=== PATIENT | female | born 1960 | race American Indian/Alaskan Native ===

== ENCOUNTER 2018-07-20 06:18 | Day surgery (SDC) | payer OTHER ==
[2018-07-20] MEDS ORDERED: WATER FOR IRRIG STERILE IR ONE (07:20)
[2018-07-20] MEDS ORDERED: WATER FOR IRRIG STERILE ONE (07:20)
[2018-07-20] MEDS ORDERED: DIPRIVAN 10 MG/ML IV ONE ×2 (07:50→08:21)
[2018-07-20] MEDS ORDERED: XYLOCAINE 2% INFILTRATI ONE (07:50)
[2018-07-20] MEDS ORDERED: NACL 0.9% 1000 ML 1,000 ML IV SCH (08:00)
--- NOTE | 2018-07-20 08:20 | Anesthesia Day of Surgery ---
Anesthesia Day of Surgery - Day of Surgery Patient Examined: Yes Patient H&P Reviewed: Yes Patient is NPO: Yes Beta Blockers: No
--- NOTE | 2018-07-20 08:21 | Anesthesia Consultation ---
Anesthesia Consult and Med Hx Date of service: 07/20/18 - Airway Anesthetic Teeth Evaluation: Good ROM Head & Neck: Adequate Mental/Hyoid Distance: Adequate Mallampati Class: Class III Intubation Access Assessment: Good - Pulmonary Exam CTA: Yes - Cardiac Exam Cardiac Exam: No Murmur - Pre-Operative Health Status ASA Pre-Surgery Classification: ASA3 Proposed Anesthetic Plan: MAC - Pulmonary Hx Smoking: Yes - Cardiovascular System Hx Hypertension: Yes
[2018-07-20] MEDS ORDERED: VERSED ONE (08:40)
--- NOTE | 2018-07-20 09:16 | Procedure Note ---
Date of procedure: 07/20/18 Pre-op diagnosis: Changes in bowel Habit/ colon Polyp Screening Post-op diagnosis: other (Colon Polyps (Sigmoid and Rectal)/ Scattered, Left Colon Diverticular Disease/Minor, Internal Hemorrhoid/ No endoscopic evidence of Colitis) Procedure: Colonoscopy with Snare Excision and cold Biopsy Anesthesia: MAC Surgeon: SHAYY SHAVER Estimated blood loss: minimal Pathology: list Specimen disposition: to lab Condition: stable Disposition: same day (Encourage fiber intake/ Avoid aspirin and NSAID for 5 days. Follow up in 1 to 2 weeks ([phone]).)
[2018-07-20 09:45] VITALS: BP 106/64
--- NOTE | 2018-07-20 09:50 | Operative Report ---
INDICATIONS: This is a 58-year-old white female who does have a family history of some cancer. The patient's cousin had colon cancer and a nephew has had a sarcoma. The patient had noticed some changes in bowel habits, possibly secondary to the use of antibiotics. Colonoscopy was done as part of colon polyp screening. Her symptoms of diarrhea have since been resolving. A colonoscopy would also be used to assess if the patient had any associated colitis or not. Procedure was done after getting informed consent with MAC anesthesia. Initial rectal exam was unremarkable. Instrument was passed through the rectum onto the cecum, which was identified with ileocecal valve and appendiceal orifice. Visualization was fair. The scope was retroflexed in the cecum. There were no polyps noted in the cecum or the ascending colon and transverse colon. There were a few scattered diverticula noted in the left colon. In the sigmoid, there was a 10 mm sessile polyp that was removed by snare excision and retrieved. An additional 8-9 mm polyp was noted in the rectum that was also sessile and removed by cold biopsy. There was minimal bleeding from the biopsy sites and no complications of the procedure. The rectum showed minor internal hemorrhoid on the retroverted view. ASSESSMENT: Colon polyp screening. Sigmoid polyp snare excised, rectal polyp removed by cold biopsy, scattered left colon diverticula, minor internal hemorrhoid. The patient had minimal bleeding from the biopsy sites. No complications of the procedure. There was no endoscopic evidence of any colitis present. The patient will be asked to avoid aspirin and aspirin-related products for the next few days and follow up in the office in 1-2 weeks' time. Also, encouraged to take fiber supplement because of the presence of the diverticula and RNLisbet was in the room throughout the entirety of the procedure. JOB# [id number] CARA/GROVER
== END 2018-07-20 06:19 | disposition home or self-care (01) ==
LOC: GIO 06:18
DX: D12.5 Benign neoplasm of sigmoid colon (principal); K62.1 Rectal polyp; K63.89 Other specified diseases of intestine; K64.8 Other hemorrhoids; K57.30 Diverticulosis of large intestine without perforation or abscess without bleeding; I10 Essential (primary) hypertension; Z88.0 Allergy status to penicillin; Z79.899 Other long term (current) drug therapy; Z87.891 Personal history of nicotine dependence; Z80.0 Family history of malignant neoplasm of digestive organs; Z80.8 Family history of malignant neoplasm of other organs or systems
CPT/HCPCS: 45380; 45385; 88305; J2250; J2704; J7030